=== PATIENT | female | born 1970 | race Caucasian/White ===

== ENCOUNTER 2018-07-20 07:46 | Day surgery (SDC) | payer OTHER ==
[2018-07-20] MEDS ORDERED: PROPOFOL 40 ML (10:12)
[2018-07-20] MEDS ORDERED: LIDOCAINE 2% (SDV) 5 ML INJ (10:12)
[2018-07-20] MEDS ORDERED: ONDANSETRON 4 MG INJ IV (10:30)
[2018-07-20] MEDS ORDERED: hydrALAzine 20 MG INJ IV (10:30)
[2018-07-20] MEDS ORDERED: EPHEDrine SULFATE 50 MG/5 ML SYG IV (10:30)
[2018-07-20] MEDS ORDERED: LABETALOL HCL 20MG INJ IV (10:30)
== END 2018-07-20 12:31 | disposition home or self-care (01) ==
LOC: GIL 07:46
DX: Z12.11 Encounter for screening for malignant neoplasm of colon (principal); K64.8 Other hemorrhoids
CPT/HCPCS: 45378